=== PATIENT | male | born 1940 | race Caucasian/White ===

== ENCOUNTER → 2020-02-25 | Outpatient (CLI) | payer MEDICARE ==
[~2020-02-25] MED LIST: AC500T; FEXO60CA19; FLT05NA16; GLIPIZIDE XL; LSNP20T; MTF500T; MULT1TAB63; TESTOSTERONE
--- NOTE | 2020-02-25 16:46 | Diagnostic Imaging Report ---
INDICATION: 80-year-old male with vitamin D deficiency COMPARISON: None available. FINDINGS: AP Spine L1-L4: [BMD (g/cm2): NA] [T-Score: NA] [Z-Score: NA] [BMD Previous: NA] [BMD % Change: NA] LT Hip Neck: [BMD (g/cm2): 0.913] [T-Score: -1.2] [Z-Score: -0.2] LT Hip Total: [BMD (g/cm2):0.957] [T-Score:-1.0] [Z-Score: -0.4] [BMD Previous: NA] [BMD % Change: NA] RT Hip Neck: [BMD (g/cm2):0.946] [T-Score:-1.0] [Z-Score:0.0] RT Hip Total: [BMD (g/cm2):0.924] [T-score:-1.2] [Z-Score:-0.7] [BMD Previous:NA] [BMD % Change:NA] *Indicates significant change from prior examination based on 95% confidence level. World Health Organization criteria for BMD interpretation classify patients as Normal (T-score at or above -1.0), Osteopenic (T-score between -1.0 and -2.5) or Osteoporotic (T-score at or below -2.5). LIMITATIONS AND MODIFICATION: Posterior instrumented fusion lumbar spine prohibits utilization of this region to assess bone mineral density. FRACTURE RISK (FRAX SCORE): The ten year probability of (%): Major Osteoporotic Fracture: [5.9%] Hip Fracture: [1.7%] IMPRESSION: 1. Osteopenia (Low bone mass). 2. Baseline examination. 3. See below National Osteoporosis Foundation guidelines on when to potentially initiate pharmacologic therapy. Based on the National Osteoporosis Foundation Guidelines, pharmacologic treatment should be initiated in any of the following, unless clinical conditions suggest otherwise: * Any patient with prior fragility fracture of the hip or vertebrae. A spine fracture indicates 5X risk for subsequent spine fracture and 2X risk for subsequent hip fracture. * Osteoporosis (T-score <-2.5). * Postmenopausal women and men age 50 and older with low bone mass/osteopenia (T-score between -1.0 and -2.5) by DXA and 10-year major osteoporotic fracture greater than 20% or a 10-year probability of hip fracture greater than 3%. These fracture risks are supplied above in the FRAX score, if applicable. * Clinician judgement and/or patient preferences may indicate treatment for people with 10-year fracture probabilities above or below these levels. Dictated by: Dictated on workstation # [id number]
== END ==
LOC: RAD 13:30
PROVIDERS: ATTEND Nurse Practitioner Family
DX: Z00.00 Encounter for general adult medical examination without abnormal findings (principal); M85.851 Other specified disorders of bone density and structure, right thigh; M85.852 Other specified disorders of bone density and structure, left thigh
CPT/HCPCS: 77080

== ENCOUNTER → 2021-03-05 | Outpatient (CLI) | payer MEDICARE, OTHER | LOC: LAB FS 13:58 | PROVIDERS: ATTEND Internal Medicine Cardiovascular Disease | DX: Z85.46 Personal history of malignant neoplasm of prostate (principal) | CPT/HCPCS: 36415; 84153 ==

== ENCOUNTER 2021-06-02 05:29 | Outpatient (CLI) | payer MEDICARE, OTHER ==
[~2021-06-02] VITALS: Ht 177.8 cm; Wt 125.0 kg
[2021-06-07] MEDS ORDERED: ASPI-999 PO (08:40)
[2021-06-07] MEDS ORDERED: INSU100V6 SQ (08:40)
[2021-06-07] MEDS ORDERED: PANT40TA52 PO (08:40)
[2021-06-07] MEDS ORDERED: SITA1TBM4 PO (08:40)
[2021-06-07] MEDS ORDERED: TMSL.4C PO (08:40)
[2021-06-07] MEDS ORDERED: VITAMIN D3 (08:40)
[2021-06-07] MEDS ORDERED: LISI40TA9 PO (08:40)
[2021-06-07] MEDS ORDERED: OMG1KC PO (08:40)
[2021-06-07] MEDS ORDERED: FURO20TA4 PO (08:40)
[2021-06-07] MEDS ORDERED: OXB5TCR PO (08:40)
[2021-06-07] MEDS ORDERED: ROSU20TA32 PO (08:45)
[2021-06-07] MEDS ORDERED: METO50TA15 PO (08:45)
[2021-06-07] MEDS ORDERED: CYAN100015 SL (08:45)
[2021-06-07] MEDS ORDERED: ACHD5005 PO (08:45)
[2021-06-07] MEDS ORDERED: FEXO-46 PO (08:45)
[2021-06-07] MEDS ORDERED: LOTE5DRO8 OP (08:45)
[2021-06-07] MEDS ORDERED: FLUT9.9S NS (08:45)
[2021-06-07] MEDS ORDERED: FLUT1DIS26 IH (08:45)
[2021-06-07] MEDS ORDERED: NITR0.4T42 SL (08:45)
== END 2021-06-07 08:57 | disposition home or self-care (01) ==
LOC: PREOP 05:29
PROVIDERS: ATTEND Orthopaedic Surgery
DX: Z01.818 Encounter for other preprocedural examination (principal)

== ENCOUNTER 2021-06-09 07:15 | Day surgery (SDC) | payer MEDICARE, OTHER ==
--- NOTE | 2021-06-01 17:05 | HISTORY AND PHYSICAL ---
DATE OF SERVICE: ADMISSION HISTORY AND PHYSICAL This will be for outpatient surgery on 06/09/2021 for right carpal tunnel release. HISTORY OF PRESENT ILLNESS: The patient is a 81-year-old gentleman with complaints of right hand pain. He underwent an EMG nerve conduction study, which revealed evidence of carpal tunnel syndrome. He reports periodic pain and paresthesias in his right hand, which is worse with repetitive activities. He denies any night pain for the most part, but does have occasionally. Due to functional impairment and failure to improve with conservative measures, the patient elected to proceed with surgical intervention. REVIEW OF SYSTEMS: No chest pain, no shortness of breath, no dysuria. PAST MEDICAL HISTORY: Diabetes, hypertension, congestive heart failure, COPD and reflux. PAST SURGICAL HISTORY: Coronary stent placement, lumbar fusion. FAMILY HISTORY: Noncontributory. [facility] ALLERGIES: NO KNOWN DRUG ALLERGIES. SOCIAL HISTORY: The patient is a former smoker, he drinks alcohol socially. MEDICATIONS: Ditropan, multivitamin, pantoprazole, aspirin, furosemide, vitamin B12, Brilinta, vitamin D, tamsulosin, metoprolol, atorvastatin, lisinopril, Janumet, insulin. PHYSICAL EXAMINATION: GENERAL: The patient is well-developed, well-nourished, in no acute distress. HEENT: Normocephalic, atraumatic. Pupils are equal, round and reactive to light. Oropharynx is clear. NECK: Supple, no lymphadenopathy. LUNGS: Clear to auscultation bilaterally. HEART: Regular rate and rhythm. ABDOMEN: Soft, nontender, nondistended. EXTREMITIES: The patient has a positive Tinel's at the right wrist, positive Phalen's maneuver. He has decreased sensation in median distribution. No gross atrophy is noted. Does have some slight weakness with thumb palmar abduction. He has negative elbow flexion test and negative Tinel's at the cubital tunnel. IMPRESSION: Right carpal tunnel syndrome. PLAN: Right carpal tunnel release. The risks, benefits, options, ramifications and recovery were discussed at length with the patient. He understands and wishes to proceed. Job ID: [id number] DocumentID: [id number] Dictated Date: 05/31/2021 09:03:46 Campaign Coordinator Date: 05/31/2021 10:21:12 Dictated By: KATY HUBBARD MD
[~2021-06-09] VITALS: Ht 177 cm; Wt 125.0 kg
[~2021-06-09 07:15] MED LIST changes: +ACHD5005 PO; +ASPI-999 PO; +CYAN100015 SL; +FEXO-46 PO; +FLUT1DIS26 IH; +FLUT9.9S NS; +FURO20TA4 PO; +INSU100V6 SQ; +LISI40TA9 PO; +LOTE5DRO8 OP; +METO50TA15 PO; +NITR0.4T42 SL; +OMG1KC PO; +OXB5TCR PO; +PANT40TA52 PO; +ROSU20TA32 PO; +SITA1TBM4 PO; +TMSL.4C PO; +VITAMIN D3
[2021-06-09] MEDS ORDERED: ceFAZolin INJECTION 1,000 MG VIAL IV ONE (07:30)
[2021-06-09] MEDS ORDERED: LACTATED RINGERS 1,000 ML IV PRN (07:30)
[2021-06-09 07:45] VITALS: BP 187/82
[2021-06-09] MEDS ORDERED: HYDROcodone/APAP 7.5 MG/325 MG (LORTAB, LORCET PLUS) TABLET PO PRN (07:45)
[2021-06-09] MEDS ORDERED: LIDOCAINE 1% INJ 20 ML VIAL ONE (07:49)
[2021-06-09] MEDS ORDERED: BUPIVACAINE 0.5% 30 ML (SENSORCAINE) VIAL ONE (07:49)
[2021-06-09] MEDS ORDERED: PROPOFOL INJECTION 50 ML IV ONE (08:37)
--- NOTE | 2021-06-09 09:29 | Progress Note-Pre Operative ---
Pre-Operative Progress Note H&P Reviewed The H&P was reviewed, patient examined and no changes noted. Date Seen by Provider: Jun 09, 2021 Time Seen by Provider: 09:15 Date H&P Reviewed: Jun 09, 2021 Time H&P Reviewed: 07:11 Pre-Operative Diagnosis: right carpal tunnel syndrome KATY HUBBARD MD Jun 09, 2021 09:29
--- NOTE | 2021-06-09 09:30 | Progress Note-Post Operative ---
Post-Operative Progess Note Surgeon (s)/Sign Poster (s) Surgeon KATY HUBBARD MD Sign Poster: Sb Abraham Pre-Operative Diagnosis right carpal tunnel syndrome Post-Operative Diagnosis right carpal tunnel syndrome Procedure & Operative Findings Date of Procedure 06/09/21 Procedure Performed/Findings right open carpal tunnel release Anesthesia Type MAC plus local Estimated Blood Loss Estimated blood loss (mL): minimal Specimens/Packing Specimens Removed none Packing: none KATY HUBBARD MD Jun 09, 2021 09:30
[2021-06-09 09:59] VITALS: BP 144/71
--- NOTE | 2021-06-09 10:04 | Anesthesia-General Post-Op ---
MAC Patient Condition Mental Status/LOC: Same as Preop Cardiovascular: Satisfactory Nausea/Vomiting: Absent Respiratory: Satisfactory Pain: Controlled Complications: Absent Post Op Complications Complications None Follow Up Care/Instructions Patient Instructions None needed. Anesthesiology Discharge Order Discharge Order Patient is doing well, no complaints, stable vital signs, no apparent adverse anesthesia problems. No complications reported per nursing. RITCHIE DUNCAN CRNA Jun 09, 2021 10:04
[2021-06-09 10:09] VITALS: BP 163/78
[2021-06-09] MEDS ORDERED: morphine INJ 10 MG/ML 1ML (SYR OR VIAL) IVP ONE (10:15)
[2021-06-09] MEDS ORDERED: ONDANSETRON 4 MG/2 ML (SDV) Z0FRAN IVP PRN (10:15)
[2021-06-09 10:19] VITALS: BP 143/73
[2021-06-09 10:30] VITALS: BP 160/79
[2021-06-09 11:00] VITALS: BP 177/89
--- NOTE | 2021-06-09 12:22 | OPERATIVE REPORT ---
DATE OF SERVICE: 06/09/2021 PREOPERATIVE DIAGNOSIS: Right carpal tunnel syndrome. POSTOPERATIVE DIAGNOSIS: Right carpal tunnel syndrome. PROCEDURE: Right open carpal tunnel release. SURGEON: Sid Mclean MD REVOLVING FIELD ASSEMBLER: Sb Abraham, who assisted throughout the procedure and closed the incision. ANESTHESIA: Monitored anesthesia care plus local by Orlando Escoto CRNA. TOURNIQUET TIME: 3 minutes at 250 mmHg. ESTIMATED BLOOD LOSS: Minimal. DRAINS: None. COMPLICATIONS: None. POSTOPERATIVE PLAN: Routine protocol. The patient was transferred to the recovery room awake and in stable condition. STATEMENT OF MEDICAL NECESSITY: The patient is a 81-year-old right hand dominant gentleman with complaints of right hand pain and paresthesias. He had positive Tinel's of carpal tunnel, positive Phalen's maneuver. He had undergone treatment with anti-inflammatories, rest and activity modifications. Due to functional impairment and failure to improve with conservative measures, the patient elected to proceed with surgical intervention. DESCRIPTION OF PROCEDURE: After risks and benefits of procedure were discussed and questions were answered, informed consent was signed and placed on chart, the operative site was confirmed in the preoperative holding area initialed by the surgeon. The patient was then transferred to the operating room and after adequate levels of monitored anesthesia care were obtained, a timeout was called, confirming the operative site and under sterile conditions, the incision site on the right hand was infiltrated with a combination of plain lidocaine and plain Marcaine. The right upper extremity was then prepped and draped in the usual sterile fashion with arm elevated, the tourniquet was inflated to 250 mmHg. A longitudinal incision was made in line over the transverse carpal ligament, in line with radial border of the ring finger. The underlying soft tissues were carefully dissected. Transverse carpal ligament was spread above and below with dissection scissors, was released distally under direct visualization with the scalpel blade while carefully protecting the median nerve and then was spread above and below with dissection scissors proximally and the proximal aspect was released with the slightly open scissor edges. This was confirmed fully released with a freer. The median nerve was carefully protected throughout the procedure and intact at the conclusion of the procedure. Tourniquet was deflated for a total time of 3 minutes. Pressure was used for hemostasis. Wound was copiously irrigated and closed with 4-0 nylon in a running alternating horizontal mattress fashion. A soft dressing and brace were applied. The patient was transferred to the recovery room awake and in stable condition. Job ID: [id number] DocumentID: [id number] Dictated Date: 06/09/2021 09:55:14 District Fire Chief Date: 06/09/2021 12:21:33 Dictated By: SID MCLEAN MD
== END 2021-06-09 11:10 | disposition home or self-care (01) ==
LOC: SDC 07:15
PROVIDERS: ATTEND Orthopaedic Surgery
DX: G56.01 Carpal tunnel syndrome, right upper limb (principal); E11.9 Type 2 diabetes mellitus without complications; I11.0 Hypertensive heart disease with heart failure; I50.9 Heart failure, unspecified; J44.9 Chronic obstructive pulmonary disease, unspecified; K21.9 Gastro-esophageal reflux disease without esophagitis; E66.9 Obesity, unspecified; Z87.891 Personal history of nicotine dependence; Z79.4 Long term (current) use of insulin; Z79.899 Other long term (current) drug therapy; Z79.82 Long term (current) use of aspirin; Z79.84 Long term (current) use of oral hypoglycemic drugs; Z79.52 Long term (current) use of systemic steroids; Z68.39 Body mass index [BMI] 39.0-39.9, adult; Z95.5 Presence of coronary angioplasty implant and graft
CPT/HCPCS: 82947; 87081

== ENCOUNTER → 2021-10-28 | Outpatient (CLI) | payer MEDICARE, OTHER ==
[~2021-10-28] MED LIST changes: -FEXO-46 PO; +NF-ALLE180 PO
--- NOTE | 2021-10-28 12:57 | Diagnostic Imaging Report ---
EXAMINATION: CT chest without contrast. TECHNIQUE: Multiple contiguous axial images were obtained through the chest without the use of intravenous contrast. All CT scans use one or more of the following dose optimizing techniques: automated exposure control, MA and/or KvP adjustment based on patient size and exam type or iterative reconstruction. HISTORY: HX OF TOBACCO USE COMPARISON: None available. FINDINGS: Thyroid: The thyroid is normal. Mediastinum: Heart size is normal without significant pericardial effusion. Calcifications of the aorta and coronary vessels. Thoracic aorta is normal in caliber. No suspicious lymphadenopathy. Lungs and airways: The lungs are clear without consolidation, pleural effusion, or pneumothorax. There is no suspicious pulmonary lesion. The airways are normal. Upper abdomen: Hepatic cysts are present. The subphrenic structures are unremarkable. Musculoskeletal: Degenerative changes of the spine without suspicious osseous lesion or compression fracture. IMPRESSION: 1. No acute abnormality in the chest. Dictated by: Dictated on workstation # [id number]
== END ==
LOC: RAD FS 12:11
PROVIDERS: ATTEND Nurse Practitioner Family
DX: Z87.891 Personal history of nicotine dependence (principal)
CPT/HCPCS: 71250

== ENCOUNTER 2022-03-07 05:38 | Outpatient (CLI) | payer MEDICARE, OTHER ==
[~2022-03-07] VITALS: Ht 177.8 cm; Wt 131.8 kg
[~2022-03-07 05:38] MED LIST changes: -AC500T; +AC500T PO
[2022-03-08] MEDS ORDERED: GABA300C PO (14:08)
[2022-03-08] MEDS ORDERED: FLUT1BLS15 IH (14:08)
[2022-03-08] MEDS ORDERED: ATOR10TA66 PO (14:08)
[2022-03-08] MEDS ORDERED: HYDR-3817 PO (14:08)
== END 2022-03-08 14:24 | disposition home or self-care (01) ==
LOC: PREOP 05:38
PROVIDERS: ATTEND Specialist
DX: Z01.818 Encounter for other preprocedural examination (principal)

== ENCOUNTER 2022-03-11 07:55 | Day surgery (SDC) | payer MEDICARE, OTHER ==
[~2022-03-11] VITALS: Ht 177.8 cm; Wt 131.0 kg
[~2022-03-11 07:55] MED LIST changes: +ATOR10TA66 PO; +FLUT1BLS15 IH; +GABA300C PO; +HYDR-3817 PO
[2022-03-11 08:14] VITALS: BP 136/75
[2022-03-11] MEDS ORDERED: PHENYLEPHRINE 10% OPHTH (NEO-SYN) 5 ML BTL OU PRN (08:15)
[2022-03-11] MEDS ORDERED: TETRACAINE 0.5% OPHTH SOLN 4 ML BTL (SINGLE DOSE ONLY) OU PRN (08:15)
[2022-03-11] MEDS ORDERED: TROPICAMIDE 1% OPH SOLN (MYDRIACYL) 15 ML BTL OU PRN (08:15)
--- NOTE | 2022-03-11 09:30 | Ophthalmologist Pre-Op Note ---
Pre-Operative Progress Note H&P Reviewed The H&P was reviewed, patient examined and no changes noted. Date H&P Reviewed: Mar 11, 2022 Time H&P Reviewed: 09:00 Pre-Op Dx Secondary Cataract, Bilateral Eyes ALLISON MOYER MD Mar 11, 2022 09:30
--- NOTE | 2022-03-11 09:30 | Ophthalmology Operative Report ---
YAG Capsulotomy PREOPERATIVE DIAGNOSIS: Secondary Cataract Bilateral POSTOPERATIVE DIAGNOSIS: Secondary Cataract Bilateral PROCEDURE: YAG Capsulotomy, Bilateral SURGEON: Maurizio Moyer ANESTHESIA: Topical anesthesia COMPLICATIONS: None ESTIMATED BLOOD LOSS: Minimal DESCRIPTION OF PROCEDURE: After proper informed consent was obtained, the patient's, a 82 male , received one drop of Tropicamide and one drop of Tetracaine in each eye. The patient was then placed at the YAG laser and using a power of [4.5 ] millijoules and bursts [ 17] right eye and [ 24] left eye were used to fashion a central capsulotomy. The patient tolerated the procedure well without complications. MAURIZIO MOYER MD Mar 11, 2022 09:30
== END 2022-03-11 09:21 | disposition home or self-care (01) ==
LOC: SDC 07:55 → EDSTATUS 11:00
PROVIDERS: ATTEND Specialist
DX: E11.36 Type 2 diabetes mellitus with diabetic cataract (principal); H26.40 Unspecified secondary cataract; Z87.891 Personal history of nicotine dependence

== ENCOUNTER 2022-11-10 14:50 | Observation (INO) | payer OTHER, MEDICARE ==
[~2022-11-10] VITALS: Ht 177 cm; Wt 130.8 kg
[~2022-11-10 14:50] MED LIST changes: -FLUT9.9S NS; +FLUT9.9S NSEACH; +LOTE5DRO14 OU; -LOTE5DRO8 OP; -ROSU20TA32 PO; +ROSU20TA73 PO
[2022-11-10 15:24] LABS: BASOPHILS % (AUTO) 0 % (0-10); EOSINOPHILS # (AUTO) 0.3 10^3/uL (0.0-0.3); EOSINOPHILS % (AUTO) 4 % (0-10); HEMATOCRIT 35 % (40-54); HEMOGLOBIN 11.6 g/dL (13.3-17.7); LYMPHOCYTES # (AUTO) 1.6 X 10^3 (1.0-4.0); LYMPHOCYTES % (AUTO) 22 % (12-44); MEAN CORPUSCULAR HEMOGLOBIN 30 pg (25-34); MEAN CORPUSCULAR HGB CONC 33 g/dL (32-36); MEAN CORPUSCULAR VOLUME 92 fL (80-99); MEAN PLATELET VOLUME 11.2 fL (9.0-12.2); MONOCYTES # (AUTO) 0.6 X 10^3 (0.0-1.0); MONOCYTES % (AUTO) 8 % (0-12); NEUTROPHILS # (AUTO) 4.5 X 10^3 (1.8-7.8); NEUTROPHILS % (AUTO) 65 % (42-75); PLATELET COUNT 206 10^3/uL (130-400)
[2022-11-10 15:25] LABS: ALBUMIN 4.1 GM/DL (3.2-4.5); CHLORIDE 107 MMOL/L (98-107); POTASSIUM 5.1 MMOL/L (3.6-5.0); SODIUM 138 MMOL/L (135-145)
[2022-11-10 15:26] LABS: PROTHROMBIN TIME PATIENT 13.8 SEC (12.2-14.7)
[2022-11-10 15:27] LABS: CALCIUM 9.2 MG/DL (8.5-10.1)
[2022-11-10 15:28] LABS: GLUCOSE 298 MG/DL (70-105); TOTAL PROTEIN 6.7 GM/DL (6.4-8.2)
[2022-11-10 15:29] LABS: CARBON DIOXIDE 20 MMOL/L (21-32)
[2022-11-10 15:30] LABS: BILIRUBIN,TOTAL 0.3 MG/DL (0.1-1.0)
[2022-11-10 15:31] LABS: ALKALINE PHOSPHATASE 72 U/L (40-136)
[2022-11-10 15:32] LABS: CREATININE SERUM 2.08 MG/DL (0.60-1.30); GFR ESTIMATED 32
[2022-11-10 15:33] LABS: BUN/CREATININE RATIO 21
[2022-11-10 15:34] LABS: ALANINE AMINOTRANSFERASE 25 U/L (0-55); MAGNESIUM 1.8 MG/DL (1.6-2.4)
--- NOTE | 2022-11-10 15:36 | Diagnostic Imaging Report ---
INDICATION: Chest pain. TECHNIQUE: Frontal chest obtained at 03:31 p.m. FINDINGS: Heart is borderline in size. There is no focal infiltrate or pneumothorax or pleural fluid. IMPRESSION: Negative chest. Dictated by: Dictated on workstation # [id number]
--- NOTE | 2022-11-10 17:08 | ED Cardiac General ---
History of Present Illness General Chief Complaint: Cardiac/General Problems Stated Complaint: DECREASED HEART RATE Nursing Triage Note: PT PRESENTS TO ER WITH REPORTED BILATERAL ARM HEAVINESS AND BRADYCARDIA, REPORTS THAT HEART RATE WAS IN THE 40'S AT HOME. PT DENIES COMPLAINTS OF CHEST PAIN/SHORTNESS OF BREATH Source: patient Exam Limitations: no limitations History of Present Illness Date Seen by Provider: Nov 10, 2022 Time Seen by Provider: 15:10 Initial Comments Here with report of low heart rate and feeling heavy in his arms and legs and face. States that his heart rate was down into the 40s at home. Does have history of heart failure, hypertension and diabetes. Notes swelling in his legs that seem to be a little worse than previous. 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 He is from [place] and came down here after calling his health nurse and describing symptoms. He arrives with mild shortness of breath. Denies chest pain but does admit to leg swelling. States he has diabetes and his blood sugars have been running in the 200s recently. Denies fever, chills, upper respiratory symptoms or diarrhea. He is urinating okay. Timing/Duration: 1-3 hours Severity: moderate Location: other (Global weakness/heaviness) NTG SL INSTRUCTOR HAIRSPRING: No ASA po INSTRUCTOR HAIRSPRING: No Associated Systoms: No Chest Pain, No Cough, No Fever/Chills, No Nausea/Vomiting, No Shortness of Air; Weakness Allergies and Home Medications Allergies Coded Allergies: No Known Drug Allergies (Verified , 06/07/21) Patient Home Medication List Home Medication List Reviewed: Yes Acetaminophen (Tylenol) 500 Mg Tablet, 1,000 MG PO UD, (Reported) Entered as Reported by: CRIS ANTHONY on 02/15/07 2347 Aspirin (Aspirin) 81 Mg Tab.chew, 81 MG PO DAILY, (Reported) Entered as Reported by: KENIA TREVINO on 06/07/21 0840 Atorvastatin Calcium (Atorvastatin Calcium) 10 Mg Tablet, 10 MG PO HS, (Reported) Entered as Reported by: KENIA TREVINO on 03/08/22 1408 Cyanocobalamin (Vitamin B-12) (Vitamin B-12) 1,000 Mcg Tab.subl, 1,000 MCG SL UD, (Reported) Entered as Reported by: KENIA TREVINO on 06/07/21 0845 Fexofenadine HCl (Fexofenadine HCl) Unknown Strength Tablet, Unknown Dose PO, (Reported) Entered as Reported by: KENIA TREVINO on 06/07/21844 Fluticasone Propionate (Flonase) 16 Gm [place], (Reported) Entered as Reported by: CRIS ANTHONY on 02/15/072345 Fluticasone Propionate (Flonase Allergy Relief) 9.9 Ml [place].susp, 1 SPRAY NS DAILY, (Reported) Entered as Reported by: KENIA TREVINO on 06/07/21844 Fluticasone/Salmeterol (Advair 250-50 Diskus) Unknown Strength Blst.w.dev, Unknown Dose IH DAILY, (Reported) Entered as Reported by: KENIA TREVINO on 06/07/21844 Fluticasone/Umeclidin/Vilanter (Trelegy Ellipta 200-62.5-25) 200-62.5 Blst.w.dev, 1 EACH IH DAILY, (Reported) Entered as Reported by: KENIA TREVINO on 03/08/221407 Furosemide (Furosemide) 20 Mg Tablet, 20 MG PO PRN, (Reported) Entered as Reported by: KENIA TREVINO on 06/07/21839 Gabapentin (Neurontin) 300 Mg Capsule, 600 MG PO HS, (Reported) Entered as Reported by: KENIA TREVINO on 03/08/221407 Hydrocodone/Acetaminophen (Hydrocodone-Acetamin 7.5-325) 7.5 Mg-325 Mg Tablet, 1 EACH PO UD, (Reported) Entered as Reported by: KENIA TREVINO on 03/08/221407 Insulin Glargine,Hum.rec.anlog (Lantus) 100 Unit/1 Ml Vial, 40 UNIT SQ HS, (Reported) Entered as Reported by: KENIA TREVINO on 06/07/21839 Lisinopril (Lisinopril) 40 Mg Tablet, 40 MG PO DAILY, (Reported) Entered as Reported by: KENIA TREVINO on 06/07/21839 Loteprednol Etabonate (Loteprednol Etabonate) 5 Ml Drops.susp, 1 DROP OP UD, (Reported) Entered as Reported by: KENIA TREVINO on 06/07/21844 Metoprolol Tartrate (Metoprolol Tartrate) 50 Mg Tablet, 100 MG PO BID, (Reported) Entered as Reported by: KENIA TREVINO on 06/07/21844 Multivitamins (Vitamins (Multi-Vit)) 1 Ea Tablet, (Reported) Entered as Reported by: CRIS ANTHONY on 02/15/07 2343 Nitroglycerin (Nitroglycerin) 0.4 Mg Tab.subl, 0.4 MG SL UD, (Reported) Entered as Reported by: KENIA TREVINO on 06/07/21844 [place] 3 Polyunsat Fatty Acids (Fish Oil 1,000 mg Capsule) 1,000 Mg Cap, 1,000 MG PO DAILY, (Reported) Entered as Reported by: KENIA TREVINO on 06/07/21839 Pantoprazole Sodium (Pantoprazole Sodium) 40 Mg Tablet.dr, 40 MG PO DAILY, (Reported) Entered as Reported by: KENIA TREVINO on 06/07/21839 Sitagliptin Phos/Metformin HCl (Janumet Xr 50-1,000 mg Tablet) 1 Each Tbmp.24hr, 1 EACH PO DAILY, (Reported) Entered as Reported by: KENIA TREVINO on 06/07/21839 Tamsulosin HCl (Flomax) 0.4 Mg Cap, 0.4 MG PO DAILY, (Reported) Entered as Reported by: KENIA TREVINO on 06/07/21839 [Vitamin D3] , UD, (Reported) Entered as Reported by: KENIA TREVINO on 06/07/21839 Review of Systems Review of Systems Constitutional: see HPI; No chills, No fever EENTM: No Symptoms Reported Respiratory: Denies Cough, Denies Shortness of Air Cardiovascular: Edema, Irregular Heart Rate Gastrointestinal: Denies Nausea, Denies Vomiting Genitourinary: No Symptoms Reported Musculoskeletal: No back pain; muscle weakness Skin: no symptoms reported Psychiatric/Neurological: Headache, Weakness Past Mwoefgz-Zhxyzi-Fxninv Hx Patient Social History Tobacco Use?: No Smoking Status: Former Smoker Use of E-Cig and/or Vaping dev: No Substance use?: No Alcohol Use?: Yes Pt feels they are or have been: No Immunizations Up To Date Influenza Vaccine Up-to-Date: Yes; Up-to-Date First/Initial COVID19 Vaccinat: 06/04/20 Second COVID19 Vaccination Slim: 07/02/20 Third COVID19 Vaccination Date: 04/06/21 Seasonal Allergies Seasonal Allergies: Yes Past Medical History Surgery/Hospitalization HX: CARDIAC STENTS, CHF, COPD WITH C-PAP, DM, ARTHRITIS Surgeries: Yes (vasectomy) Respiratory: Yes Pneumonia, COPD Cardiac: Yes (CHF) Heart Attack, High Cholesterol, Hypertension Neurological: No Reproductive Disorders: Yes Genitourinary: Yes (URGES) Prostate Problems Gastrointestinal: Yes Gastroesophageal Reflux Musculoskeletal: Yes Degenerate Disk Disease, Arthritis Endocrine: Yes Diabetes, Insulin dep HEENT: No Cancer: Yes Prostate What Type of Treatment Did You: Radiation Psychosocial: No Blood Disorders: No Family Medical History Reviewed Nursing Family Hx Physical Exam Vital Signs Vital Signs - First Documented 11/10/22 14:55 Temp 37.0 Pulse 57 Resp 20 B/P (MAP) 118/57 (77) Pulse Ox 97 O2 Delivery Room Air Capillary Refill : Less Than 3 Seconds Height, Weight, BMI Height: '" Weight: lbs. oz. kg; 42.00 BMI Method: General Appearance: No Apparent Distress, WD/WN, Obese HEENT: PERRL/EOMI, Pharynx Normal Neck: Non Tender, Supple Respiratory: Lungs Clear, Normal Breath Sounds Cardiovascular: No Murmur, Bradycardia Gastrointestinal: Non Tender, Soft Extremity: Normal Range of Motion, Non Tender, Pedal Edema (2+) Neurologic/Psychiatric: Alert, Oriented x3 Skin: Normal Color, Warm/Dry Progress/Results/Core Measures Results/Orders Lab Results Laboratory Tests Test 11/10/22 14:59 Range/Units White Blood Count 7.0 4.3-11.0 10^3/uL Red Blood Count 3.85 L 4.30-5.52 10^6/uL Hemoglobin 11.6 L 13.3-17.7 g/dL Hematocrit 35 L 40-54 % Mean Corpuscular Volume 92 80-99 fL Mean Corpuscular Hemoglobin 30 25-34 pg Mean Corpuscular Hemoglobin Concent 33 32-36 g/dL Red Cell Distribution Width 13.7 10.0-14.5 % Platelet Count 206 130-400 10^3/uL Mean Platelet Volume 11.2 9.0-12.2 fL Immature Granulocyte % (Auto) 1 % Neutrophils (%) (Auto) 65 42-75 % Lymphocytes (%) (Auto) 22 12-44 % Monocytes (%) (Auto) 8 0-12 % Eosinophils (%) (Auto) 4 0-10 % Basophils (%) (Auto) 0 0-10 % Neutrophils # (Auto) 4.5 1.8-7.8 X 10^3 Lymphocytes # (Auto) 1.6 1.0-4.0 X 10^3 Monocytes # (Auto) 0.6 0.0-1.0 X 10^3 Eosinophils # (Auto) 0.3 0.0-0.3 10^3/uL Basophils # (Auto) 0.0 0.0-0.1 10^3/uL Immature Granulocyte # (Auto) 0.0 0.0-0.1 10^3/uL Prothrombin Time 13.8 12.2-14.7 SEC INR Comment 1.0 0.8-1.4 Activated Partial Thromboplast Time 29 24-35 SEC Sodium Level 138 135-145 MMOL/L Potassium Level 5.1 H 3.6-5.0 MMOL/L Chloride Level 107 98-107 MMOL/L Carbon Dioxide Level 20 L 21-32 MMOL/L Anion Gap 11 5-14 MMOL/L Blood Urea Nitrogen 44 H 7-18 MG/DL Creatinine 2.08 H 0.60-1.30 MG/DL Estimat Glomerular Filtration Rate 32 BUN/Creatinine Ratio 21 Glucose Level 298 H 70-105 MG/DL Calcium Level 9.2 8.5-10.1 MG/DL Corrected Calcium 9.1 8.5-10.1 MG/DL Magnesium Level 1.8 1.6-2.4 MG/DL Total Bilirubin 0.3 0.1-1.0 MG/DL Aspartate Amino Transf (AST/SGOT) 16 5-34 U/L Alanine Aminotransferase (ALT/SGPT) 25 0-55 U/L Alkaline Phosphatase 72 40-136 U/L Myoglobin 112.7 H 10.0-92.0 NG/ML Troponin I < 0.028 <0.028 NG/ML B-Type Natriuretic Peptide 139.5 H <100.0 PG/ML Total Protein 6.7 6.4-8.2 GM/DL Albumin 4.1 3.2-4.5 GM/DL My Orders Orders - DANITA PATINO MD Ekg Tracing (11/10/22 15:05) Cbc With Automated Diff (11/10/22 15:13) Magnesium (11/10/22 15:13) Chest 1 View, Ap/Pa Only (11/10/22 15:13) Ekg Tracing (11/10/22 15:13) Comprehensive Metabolic Panel (11/10/22 15:13) Myoglobin Serum (11/10/22 15:13) Protime With Inr (11/10/22 15:13) Partial Thromboplastin Time (11/10/22 15:13) O2 (11/10/22 15:13) Monitor-Rhythm Ecg Trace Only (11/10/22 15:13) Lipid Panel (11/11/22 06:00) Ed Iv/Invasive Line Start (11/10/22 15:13) Bnp [place] (11/10/22 15:13) Troponin I [place] (11/10/22 15:13) Code/Resuscitation (11/10/22 18:03) Ed Admission (Communication) (11/10/22 18:03) Troponin I [place] (11/10/22 18:26) Vital Signs/I&O 11/10/22 14:55 Temp 37.0 Pulse 57 Resp 20 B/P (MAP) 118/57 (77) Pulse Ox 97 O2 Delivery Room Air Blood Pressure Mean: 77 Progress Progress Note : Progress Note Seen and evaluated. IV, labs including CBC, CMP, troponin, BNP ordered. X-ray ordered. Patient on monitor. Patient is on Eliquis and denying chest pain so we will hold on aspirin. Monitor patient. Differential diagnosis includes cardiac event, arrhythmia, heart failure 1700: Chest x-ray shows mild cardiomegaly but no pulmonary edema or infiltrate on my interpretation. 1750: Labs reviewed and patient has essentially normal CBC with slightly low hemoglobin. Chemistry does show elevated potassium and chronic renal failure as well as elevated glucose with normal LFTs. Troponin is negative but myoglobin is slightly elevated and BNP is slightly elevated. I have spoken with Dr. Christianson, manager school on-call, and reviewed case. He is recommending repeat troponin at 3-hour berna and in the morning. He is recommending cardiac echo in the morning and holding metoprolol and he will see the patient in consult. I spoke with Dr. Roberts, resident on-call for Dr. Mathur for hospitalist service for [facility] and she accepts patient for admission, observation status and she will write orders. I did discuss CODE STATUS with the patient and he is full code. Overall he is doing well and heart rate has remained in the low to mid 50s with blood pressure 110s to 120s systolic. Patient agrees with admission. Initial ECG Impression Date: Nov 10, 2022 Initial ECG Impression Time: 15:13 Initial ECG Rate: 51 Initial ECG Rhythm: S.Ulises Comment Sinus bradycardia with normal axis and right bundle branch block and low volume P waves. No evidence of ST elevation ND. Interpreted by me. Diagnostic Imaging Diagonstic Imaging: Xray Plain Films/CT/US/NM/MRI: chest Comments [facility] [place] NAME: JABARI LAUREANO [facility] REC#: [id number] PT STATUS: REG ER : 1940 PHYSICIAN: DANITA PATINO MD ADMIT DATE: 11/10/22/ER Signed Date of Exam:11/10/22 CHEST 1 VIEW, AP/PA ONLY INDICATION: Chest pain. TECHNIQUE: Frontal chest obtained at 03:31 p.m. FINDINGS: Heart is borderline in size. There is no focal infiltrate or pneumothorax or pleural fluid. IMPRESSION: Negative chest. Dictated by: Dictated on workstation # [id number] Dict: 11/10/22 1533 Trans: 11/10/22 1650 [id number] Interpreted by: BHAVESH ALEXANDER MD Electronically signed by: BHAVESH ALEXANDER MD 11/10/22 1650 Departure Communication (Admissions) Time/Spoke to Admitting Phy: 17:50 Time/Spoke to Consulting Phy: 17:35 Impression Primary Impression: Symptomatic bradycardia Disposition: ADMITTED INPATIENT Condition: Stable Admissions Decision to Admit Reason: Admit from ER (General) Decision to Admit/Date: Nov 10, 2022 Time/Decision to Admit Time: 17:35 Departure-Patient Inst. Referrals: NO,LOCAL PHYSICIAN (PCP) Primary Care Physician MARGARET RODRIGUEZ APRN (Family) Primary Care Physician DANITA PATINO MD Nov 10, 2022 17:08
--- NOTE | 2022-11-10 18:58 | History & Physical ---
ANT BACK MD 11/10/22 1248: HPI History of Present Illness: Mr. Greenfield is an 82yo male with a medical history significant for MA (about 2yrs ago; s/p stent placements), DVT (6wks ago) on Eliquis, CHF, COPD, T2DM, HTN, HLD, here for symptomatic bradycardia. Earlier today while he was [place] at a market, he felt progressive heaviness in his arms and legs associated with a right temporal headache, and onset of blurry vision. He denied experiencing chest pain, SOB, N/V, or lightheadedness. He called the health nurse line, who advised him to take an ambulance to the ED. There were no ambulances available, so his step-son drove him to [place] via [employer]. Upon arrival to the ED, his EKG showed sinus bradycardia with RBBB; CXR was unremarkable except for borderline cardiac sillhouette; initial troponin WNL, myoglobin 112, BNP 139, WBC WNL, CMP demonstrated elevated K 5.1, Cr 2.08. Pt was admitted for further cardiac work-up. Source: patient Exam Limitations: no limitations Date seen by provider: Nov 10, 2022 Time Seen by Provider: 18:30 Attending Physician No,Local Physician PCP Admitting Physician: Dr. Mathur Attending Physician: Dr. Mathur Consult Cardiology Date of Admission Home Medications Home Medications Reviewed patient Home Medication Reconciliation performed by pharmacy medication reconciliations entry level lab technician and/or nursing. Patients Allergies have been reviewed. Allergies Coded Allergies: No Known Drug Allergies (Verified , 06/07/21) QBP-Pilopm-Qjkhyv Hx Patient Social History Smoking Status: Former Smoker Recent Hopitalizations: Yes Alcohol Use?: Yes Immunizations Up To Date Influenza Vaccine Up-to-Date: Yes; Up-to-Date First/Initial COVID19 Vaccinat: 06/04/20 Second COVID19 Vaccination Slim: 07/02/20 Third COVID19 Vaccination Date: 04/06/21 Review of Systems (CHC) Constitutional: see HPI Respiratory: no symptoms reported Cardiovascular: see HPI, edema, Hx of Intervention Musculoskeletal: muscle cramps Psychiatric/Neurological: Headache All Other Systems Reviewed Negative Unless Noted: Yes Physical Exam-(CHC) Physical Exam Vital Signs VS - Last 72 Hours, by Label 11/10/22 11/10/22 14:55 19:32 Temp 37.0 Pulse 57 55 Resp 20 20 B/P (MAP) 118/57 (77) 157/84 Pulse Ox 97 95 O2 Delivery Room Air Room Air Capillary Refill : Less Than 3 Seconds General Appearance: no apparent distress Eyes: Bilateral Eye PERRL, Bilateral Eye EOMI Neck: normal inspection Respiratory: wheezing (expiratory wheezing, prominent on R side) Cardiovascular: bradycardia, gallop/S4 Peripheral Pulses: 2+ Dorsalis Pedis (R), 2+ Left Dors-Pedis (L) Gastrointestinal: non tender, soft Extremities: normal range of motion, calf tenderness, pedal edema, slow capillary refill, swelling Neurologic/Psychiatric: no motor/sensory deficits, alert, normal mood/affect, oriented x 3 Skin: normal color Assessment/Plan Assessment/Plan Admission Dx Symptomatic bradycardia Admission Status: Observation Reason for Inpatient Admission: Symptomatic bradycardia Assessment & Plan Symptomatic bradycardia - Admit to observation status in cardiac step-down unit for further cardiac work-up - Cardiology consult in AM - Trend troponin (delta) - Repeat troponin in AM - Echo in AM - Monitor on telemetry - Cardiac diet - Hold metoprolol in setting of bradycardia - Holding home antihypertensives - Continue home Eliquis 5 mg BID T2DM - LDCF - ACHS Clinical Quality Measures AMI/AHF: ASA po Prior to arrival: No RENE MATHUR MD 11/11/22 1017: Home Medications Allergies Coded Allergies: No Known Drug Allergies (Verified , 06/07/21) Supervisory-Addendum Brief Supervisory Addendum I saw this patient at about 0950 on 11/11 and did my own history and exam. I agree with the documentation and assessment and plan per the resident note. ANT BACK MD Nov 10, 2022 18:58 RENE MATHUR MD Nov 11, 2022 10:17
--- NOTE | 2022-11-10 21:04 | Consultation-Cardiology ---
HPI-Cardiology Cardiology Consultation: Date of Consultation 11/10/22 Date of Admission Attending Physician Mandi Harris Aprn Admitting Physician Admitting Physician: Kimberlee Mathur MD Attending Physician: Kimberlee Mathur MD Consulting Physician Eula DENG MD HPI: Time Seen by a Provider: 21:34 Chief Complaint: Weakness This is an 82-year-old gentleman who has history of congestive heart failure, hypertension, diabetes. He also has history of DVT and is on chronic oral anticoagulation. He presents with bradycardia and feeling heavy in his arms and legs. Hyperglycemia is noted. Mild shortness of breath. No chest pain. Review of Systems-Cardiology Review of Systems Constitutional: tiredness Eyes: no symptoms reported Ears/Nose/Throat: no symptoms reported Respiratory: SOB with excertion Cardiovascular: no symptoms reported Gastrointestinal: no symptoms reported Genitourinary: no symptoms reported Musculoskeletal: other (Extremity discomfort) Skin: no symptoms reported Psychiatric/Neurological: no symptoms reported Hematologic: no symptoms reported All Other Systems Reviewed Negative Unless Noted: Yes [id number] Hx Patient Social History Smoking Status: Former Smoker Alcohol Use?: Yes Pt feels they are or have been: No Past Medical History PMH As described under Assessment. Allergies and Home Medications Allergies Coded Allergies: No Known Drug Allergies (Verified , 06/07/21) Patient Home Medication List Home Medication List Reviewed: Yes Acetaminophen (Tylenol) 500 Mg Tablet, 1,000 MG PO UD, (Reported) Entered as Reported by: CRIS ANTHONY on 02/15/07 2347 Aspirin (Aspirin) 81 Mg Tab.chew, 81 MG PO DAILY, (Reported) Entered as Reported by: KENIA TREVINO on 06/07/21 0840 Atorvastatin Calcium (Atorvastatin Calcium) 10 Mg Tablet, 10 MG PO HS, (Reported) Entered as Reported by: KENIA TREVINO on 03/08/22 1408 Cyanocobalamin (Vitamin B-12) (Vitamin B-12) 1,000 Mcg Tab.subl, 1,000 MCG SL UD, (Reported) Entered as Reported by: KENIA TREVINO on 06/07/21 0845 Fexofenadine HCl (Fexofenadine HCl) Unknown Strength Tablet, Unknown Dose PO, (Reported) Entered as Reported by: KENIA TREVINO on 06/07/21 0845 Fluticasone Propionate (Flonase) 16 Gm [place], (Reported) Entered as Reported by: CRIS ANTHONY on 02/15/07 2346 Fluticasone Propionate (Flonase Allergy Relief) 9.9 Ml [place].susp, 1 SPRAY NS DAILY, (Reported) Entered as Reported by: KENIA TREVINO on 06/07/21 08 Fluticasone/Salmeterol (Advair 250-50 Diskus) Unknown Strength Blst.w.dev, Unkno wn Dose IH DAILY, (Reported) Entered as Reported by: KENIA TREVINO on 06/07/21 08 Fluticasone/Umeclidin/Vilanter (Trelegy Ellipta 200-62.5-25) 200-62.5 Blst.w.dev, 1 EACH IH DAILY, (Reported) Entered as Reported by: KENIA TREVINO on 03/08/22 140 Furosemide (Furosemide) 20 Mg Tablet, 20 MG PO PRN, (Reported) Entered as Reported by: KENIA TREVINO on 06/07/21 08 Gabapentin (Neurontin) 300 Mg Capsule, 600 MG PO HS, (Reported) Entered as Reported by: KENIA TREVINO on 03/08/22 140 Hydrocodone/Acetaminophen (Hydrocodone-Acetamin 7.5-325) 7.5 Mg-325 Mg Tablet, 1 EACH PO UD, (Reported) Entered as Reported by: KENIA TREVINO on 03/08/22 140 Insulin Glargine,Hum.rec.anlog (Lantus) 100 Unit/1 Ml Vial, 40 UNIT SQ HS, (Reported) Entered as Reported by: KENIA TREVINO on 06/07/21 08 Lisinopril (Lisinopril) 40 Mg Tablet, 40 MG PO DAILY, (Reported) Entered as Reported by: KENIA TREVINO on 06/07/21 08 Loteprednol Etabonate (Loteprednol Etabonate) 5 Ml Drops.susp, 1 DROP OP UD, (Reported) Entered as Reported by: KENIA TREVINO on 06/07/21 0845 Metoprolol Tartrate (Metoprolol Tartrate) 50 Mg Tablet, 100 MG PO BID, (R eported) Entered as Reported by: KENIA TREVINO on 06/07/21844 Multivitamins (Vitamins (Multi-Vit)) 1 Ea Tablet, (Reported) Entered as Reported by: CRIS ANTHONY on 02/15/07 234 Nitroglycerin (Nitroglycerin) 0.4 Mg Tab.subl, 0.4 MG SL UD, (Reported) Entered as Reported by: KENIA TREVINO on 06/07/21844 [place] 3 Polyunsat Fatty Acids (Fish Oil 1,000 mg Capsule) 1,000 Mg Cap, 1,000 MG PO DAILY, (Reported) Entered as Reported by: KENIA TREVINO on 06/07/21839 Pantoprazole Sodium (Pantoprazole Sodium) 40 Mg Tablet.dr, 40 MG PO DAILY, (Reported) Entered as Reported by: KENIA TREVINO on 06/07/21839 Sitagliptin Phos/Metformin HCl (Janumet Xr 50-1,000 mg Tablet) 1 Each Tbmp.24hr, 1 EACH PO DAILY, (Reported) Entered as Reported by: KENIA TREVINO on 06/07/21839 Tamsulosin HCl (Flomax) 0.4 Mg Cap, 0.4 MG PO DAILY, (Reported) Entered as Reported by: KENIA TREVINO on 06/07/21839 [Vitamin D3] , UD, (Reported) Entered as Reported by: KENIA TREVINO on 06/07/21839 Exam Vital Signs Vital Signs Date Time Temp Pulse Resp B/P (MAP) Pulse Ox O2 Delivery O2 Flow Rate FiO2 11/10/22 20:21 60 11/10/22 19:32 20 157/84 95 Room Air 11/10/22 14:55 37.0 Physical Exam Constitutional: Complains of weakness. Chest: Clear to auscultation bilaterally. CVS: Sinus rhythm. No murmur. Abdomen: Soft Neuro: Alert, oriented Positive bilateral pitting pedal edema Labs Laboratory Tests Test 11/10/22 14:59 11/10/22 19:00 Range/Units White Blood Count 7.0 4.3-11.0 10^3/uL Red Blood Count 3.85 L 4.30-5.52 10^6/uL Hemoglobin 11.6 L 13.3-17.7 g/dL Hematocrit 35 L 40-54 % Mean Corpuscular Volume 92 80-99 fL Mean Corpuscular Hemoglobin 30 25-34 pg Mean Corpuscular Hemoglobin Concent 33 32-36 g/dL Red Cell Distribution Width 13.7 10.0-14.5 % Platelet Count 206 130-400 10^3/uL Mean Platelet Volume 11.2 9.0-12.2 fL Immature Granulocyte % (Auto) 1 % Neutrophils (%) (Auto) 65 42-75 % Lymphocytes (%) (Auto) 22 12-44 % Monocytes (%) (Auto) 8 0-12 % Eosinophils (%) (Auto) 4 0-10 % Basophils (%) (Auto) 0 0-10 % Neutrophils # (Auto) 4.5 1.8-7.8 X 10^3 Lymphocytes # (Auto) 1.6 1.0-4.0 X 10^3 Monocytes # (Auto) 0.6 0.0-1.0 X 10^3 Eosinophils # (Auto) 0.3 0.0-0.3 10^3/uL Basophils # (Auto) 0.0 0.0-0.1 10^3/uL Immature Granulocyte # (Auto) 0.0 0.0-0.1 10^3/uL Prothrombin Time 13.8 12.2-14.7 SEC INR Comment 1.0 0.8-1.4 Activated Partial Thromboplast Time 29 24-35 SEC Sodium Level 138 135-145 MMOL/L Potassium Level 5.1 H 3.6-5.0 MMOL/L Chloride Level 107 98-107 MMOL/L Carbon Dioxide Level 20 L 21-32 MMOL/L Anion Gap 11 5-14 MMOL/L Blood Urea Nitrogen 44 H 7-18 MG/DL Creatinine 2.08 H 0.60-1.30 MG/DL Estimat Glomerular Filtration Rate 32 BUN/Creatinine Ratio 21 Glucose Level 298 H 70-105 MG/DL Calcium Level 9.2 8.5-10.1 MG/DL Corrected Calcium 9.1 8.5-10.1 MG/DL Magnesium Level 1.8 1.6-2.4 MG/DL Total Bilirubin 0.3 0.1-1.0 MG/DL Aspartate Amino Transf (AST/SGOT) 16 5-34 U/L Alanine Aminotransferase (ALT/SGPT) 25 0-55 U/L Alkaline Phosphatase 72 40-136 U/L Myoglobin 112.7 H 10.0-92.0 NG/ML Troponin I < 0.028 < 0.028 <0.028 NG/ML B-Type Natriuretic Peptide 139.5 H <100.0 PG/ML Total Protein 6.7 6.4-8.2 GM/DL Albumin 4.1 3.2-4.5 GM/DL ECG Impression ECG Initial ECG Rhythm: S.Ulises A/P-Cardiology Assessment/Admission Diagnosis mild chest pain, Sinus bradycardia history of cad, Diabetes, hypertension, hyperlipidemia Plan - troponin serial. ekg, echo. Previous history of CAD and PCI. Initial myoglobin is positive.Patient may require coronary angiography versus nuclear stress test. - currently heart rate of 60s. hold beta blockers - Deferred treatment of diabetes, hypertension and hyperlipidemia to the primary service. Eula DENG MD Nov 10, 2022 21:04
[2022-11-10] MEDS ORDERED: PATIENT MAY USE OWN MEDS, ALL PO SCH (22:30)
[2022-11-10] MEDS ORDERED: NITROGLYCERIN 0.4 MG SL TABS BTL 25'S SL PRN ×2 (22:30→23:00)
[2022-11-10] MEDS ORDERED: PATIENT MAY USE OWN MEDS, ALL MC SCH (23:00)
[2022-11-10] MEDS ORDERED: inSUlin ASPART (NovoLOG) 1 UNIT/0.01 ML (CHARGE PER UNIT) ONE (23:12)
[2022-11-10] MEDS: inSUlin ASPART (NovoLOG) 1 UNIT/0.01 ML (CHARGE PER UNIT) SC SCH (23:14)
[2022-11-10 23:59] VITALS: BP 121/61
[2022-11-11 05:46] LABS: BASOPHILS % (AUTO) 1 % (0-10); EOSINOPHILS # (AUTO) 0.3 10^3/uL (0.0-0.3); EOSINOPHILS % (AUTO) 4 % (0-10); HEMATOCRIT 34 % (40-54); HEMOGLOBIN 11.2 g/dL (13.3-17.7); LYMPHOCYTES # (AUTO) 1.7 10^3/uL (1.0-4.0); LYMPHOCYTES % (AUTO) 27 % (12-44); MEAN CORPUSCULAR HEMOGLOBIN 30 pg (25-34); MEAN CORPUSCULAR HGB CONC 33 g/dL (32-36); MEAN CORPUSCULAR VOLUME 91 fL (80-99); MEAN PLATELET VOLUME 11.3 fL (9.0-12.2); MONOCYTES # (AUTO) 0.6 10^3/uL (0.0-1.0); MONOCYTES % (AUTO) 9 % (0-12); NEUTROPHILS # (AUTO) 3.6 10^3/uL (1.8-7.8); NEUTROPHILS % (AUTO) 58 % (42-75); PLATELET COUNT 163 10^3/uL (130-400); WHITE BLOOD COUNT 6.2 10^3/uL (4.3-11.0)
[2022-11-11 05:57] LABS: ALBUMIN 3.8 GM/DL (3.2-4.5); POTASSIUM 4.6 MMOL/L (3.6-5.0)
[2022-11-11 05:58] LABS: CALCIUM 9.2 MG/DL (8.5-10.1)
[2022-11-11 05:59] LABS: TOTAL PROTEIN 6.3 GM/DL (6.4-8.2)
[2022-11-11] MEDS ORDERED: inSUlin ASPART (NovoLOG) 1 UNIT/0.01 ML (CHARGE PER UNIT) SC SCH (06:00)
[2022-11-11 06:01] LABS: BILIRUBIN,TOTAL 0.3 MG/DL (0.1-1.0)
[2022-11-11 06:03] LABS: CREATININE SERUM 1.55 MG/DL (0.60-1.30)
[2022-11-11] MEDS: inSUlin ASPART (NovoLOG) 1 UNIT/0.01 ML (CHARGE PER UNIT) SC SCH ×2 (06:30→13:13)
[2022-11-11] MEDS ORDERED: METO50TA15 PO (07:06)
[2022-11-11] MEDS ORDERED: ROSU20TA73 PO (07:06)
[2022-11-11] MEDS ORDERED: POTA-185 PO (07:06)
[2022-11-11] MEDS ORDERED: MONT-40 PO (07:06)
[2022-11-11] MEDS ORDERED: FURO40TA4 PO ×2 (07:07→11:54)
[2022-11-11] MEDS ORDERED: APIX5TAB PO (07:08)
[2022-11-11] MEDS ORDERED: ALBU6.7H13 INH (07:11)
[2022-11-11] MEDS ORDERED: SITA1TBM7 PO (07:11)
[2022-11-11] MEDS ORDERED: GABA300C PO (07:11)
[2022-11-11] MEDS ORDERED: TADA5TAB13 PO (07:11)
[2022-11-11] MEDS ORDERED: RT-ALBUTEROL SULF 2.5 MG/3 ML PRE-MIX VIAL INH PRN (07:15)
[2022-11-11] MEDS ORDERED: HYDROcodone/APAP 7.5 MG/325 MG (LORTAB, LORCET PLUS) TABLET PO PRN (07:15)
[2022-11-11] MEDS ORDERED: TIOTROPIUM INH 4 GM (SPIRIVA Respimat) IH SCH (08:00)
[2022-11-11] MEDS ORDERED: FLUTICASONE/VILANTEROL 200 MCG 14'S (BREO) IH SCH (08:00)
[2022-11-11] MEDS ORDERED: ASPIRIN 81 MG CHEWABLE TABLET PO SCH (09:00)
[2022-11-11] MEDS ORDERED: ROSUVASTATIN 20 MG (CRESTOR) TABLET PO SCH (09:00)
[2022-11-11] MEDS ORDERED: APIXABAN 5 MG TABLET PO SCH ×2 (09:00)
[2022-11-11] MEDS ORDERED: INSU100V52 SQ (11:54)
[2022-11-11] MEDS ORDERED: CYAN500T8 PO (11:54)
[2022-11-11] MEDS ORDERED: MULT-1136 PO (11:54)
[2022-11-11] MEDS ORDERED: NITR0.4T39 SL (11:54)
[2022-11-11] MEDS ORDERED: ACET-2650 PO (11:54)
[2022-11-11] MEDS ORDERED: OMEG100032 PO (11:54)
[2022-11-11] MEDS ORDERED: CHOL10004 PO (11:54)
[2022-11-11] MEDS ORDERED: PROP10DR2 OU (11:54)
--- NOTE | 2022-11-11 13:45 | Discharge Summary ---
Discharge Summary Hospital Course Hospital Course Date of Admission: Nov 10, 2022 at 19:54 Admission Diagnosis : Symptomatic bradycardia Family Physician/Provider: Mandi Harris Aprn Date of Discharge: 11/11/22 Discharge Diagnosis: Bradycardia Hypertension Hyperlipidemia Coronary Artery disease History of VTE Hospital Course: Pt admitted and had initial myoglobin elevated but troponins neg. No chest pain, echo was normal. Seen by Cardiology and dione for d/c. Held beta guillermina. Labs and Pending Lab Test: Laboratory Tests 11/10/22 14:59: White Blood Count 7.0, Red Blood Count 3.85L, Hemoglobin 11.6L, Hematocrit 35L, Mean Corpuscular Volume 92, Mean Corpuscular Hemoglobin 30, Mean Corpuscular Hemoglobin Concent 33, Red Cell Distribution Width 13.7, Platelet Count 206, Mean Platelet Volume 11.2, Immature Granulocyte % (Auto) 1, Neutrophils (%) (Auto) 65, Lymphocytes (%) (Auto) 22, Monocytes (%) (Auto) 8, Eosinophils (%) (Auto) 4, Basophils (%) (Auto) 0, Neutrophils # (Auto) 4.5, Lymphocytes # (Auto) 1.6, Monocytes # (Auto) 0.6, Eosinophils # (Auto) 0.3, Basophils # (Auto) 0.0, Immature Granulocyte # (Auto) 0.0, Prothrombin Time 13.8, INR Comment 1.0, Activated Partial Thromboplast Time 29, Sodium Level 138, Potassium Level 5.1H, Chloride Level 107, Carbon Dioxide Level 20L, Anion Gap 11, Blood Urea Nitrogen 44H, Creatinine 2.08H, Estimat Glomerular Filtration Rate 32, BUN/Creatinine Ratio 21, Glucose Level 298H, Calcium Level 9.2, Corrected Calcium 9.1, Magnesium Level 1.8, Total Bilirubin 0.3, Aspartate Amino Transf (AST/SGOT) 16, Alanine Aminotransferase (ALT/SGPT) 25, Alkaline Phosphatase 72, Myoglobin 112.7H, Troponin I < 0.028, B-Type Natriuretic Peptide 139.5H, Total Protein 6.7, Albumin 4.1 11/10/22 19:00: Troponin I < 0.028 11/10/22 22:30: Glucometer 331H 11/11/22 05:16: White Blood Count 6.2, Red Blood Count 3.68L, Hemoglobin 11.2L, Hematocrit 34L, Mean Corpuscular Volume 91, Mean Corpuscular Hemoglobin 30, Mean Corpuscular Hemoglobin Concent 33, Red Cell Distribution Width 13.4, Platelet Count 163, Mean Platelet Volume 11.3, Immature Granulocyte % (Auto) 0, Neutrophils (%) (Auto) 58, Lymphocytes (%) (Auto) 27, Monocytes (%) (Auto) 9, Eosinophils (%) (Auto) 4, Basophils (%) (Auto) 1, Neutrophils # (Auto) 3.6, Lymphocytes # (Auto) 1.7, Monocytes # (Auto) 0.6, Eosinophils # (Auto) 0.3, Basophils # (Auto) 0.0, Immature Granulocyte # (Auto) 0.0, Sodium Level 139, Potassium Level 4.6, Chloride Level 109H, Carbon Dioxide Level 20L, Anion Gap 10, Blood Urea Nitrogen 36H, Creatinine 1.55H, Estimat Glomerular Filtration Rate 45, BUN/Creatinine Ratio 23, Glucose Level 247H, Calcium Level 9.2, Corrected Calcium 9.4, Total Bilirubin 0.3, Aspartate Amino Transf (AST/SGOT) 18, Alanine Aminotransferase (ALT/SGPT) 24, Alkaline Phosphatase 65, Total Protein 6.3L, Albumin 3.8, Triglycerides Level 128, Cholesterol Level 125, LDL Cholesterol Direct 60, VLDL Cholesterol 26, HDL Cholesterol 37L 11/11/22 10:45: Glucometer 258H Home Meds Active Reported Insulin Glargine (Insulin Glargine,Hum.rec.anlog) 100 Unit/Ml Vial 10 Unit SQ DAILY Systane Ultra 0.4-0.3% Eye Drp (Propylene Glycol/Peg 400) 0.3 %-0.4 % Drops 1-2 Drop OU UD PRN Tylenol Arthritis (Acetaminophen) 650 Mg Tablet.er 1,300 Mg PO Q8H PRN Multivitamin 1 Each Tablet 1 Each PO DAILY Vitamin B-12 (Cyanocobalamin (Vitamin B-12)) 500 Mcg Tablet 500 Mcg PO BID Vitamin D3 (Cholecalciferol (Vitamin D3)) 25 Mcg (1000 Unit) Tablet 25 Mcg PO DAILY Fish Oil 1,000 mg Softgel ([place]-3/Dha/Epa/Fish Oil) 1,000 Mg (120 Mg-180 Mg) Capsule 1,000 Mg PO BID Furosemide 40 Mg Tablet 40 Mg PO 1200 PRN Nitroglycerin 0.4 Mg Tab.subl 0.4 Mg SL UD PRN Tadalafil 5 Mg Tablet 5 Mg PO DAILY PRN Proventil Hfa (Albuterol Sulfate) 90 Mcg Hfa.aer.ad 2 Puff INH Q4H PRN Neurontin (Gabapentin) 300 Mg Capsule 300 Mg PO BID Janumet Xr 100-1,000 mg Tablet (Sitagliptin Phos/Metformin HCl) 100 Mg-1,000 Mg Tbmp.24hr 1 Tab PO HS Eliquis (Apixaban) 5 Mg Tablet 5 Mg PO BID Furosemide 40 Mg Tablet 40 Mg PO DAILY Montelukast Sodium 10 Mg Tablet 10 Mg PO DAILY K-Tab ER (Potassium Chloride) 10 Meq Tablet.er 10 Meq PO DAILY Rosuvastatin Calcium 20 Mg Tablet 20 Mg PO DAILY Trelegy Ellipta 200-62.5-25 (Fluticasone/Umeclidin/Vilanter) 200-62.5 Blst.w.dev 1 Puff IH DAILY Hydrocodone-Acetamin 7.5-325 (Hydrocodone/Acetaminophen) 7.5 Mg-325 Mg Tablet 1 Each PO TID PRN Loteprednol Etabonate 0.5 % Drops.susp 1 Drop OU BID Flonase Allergy Relief (Fluticasone Propionate) 50 Mcg/Actuation [place].susp 1 [place] NSEACH DAILY Lantus (Insulin Glargine,Hum.rec.anlog) 100 Unit/1 Ml Vial 40 Unit SQ HS Lisinopril 40 Mg Tablet 40 Mg PO DAILY Flomax (Tamsulosin HCl) 0.4 Mg Cap 0.4 Mg PO HS Aspirin 81 Mg Tab.chew 81 Mg PO DAILY Pantoprazole Sodium 40 Mg Tablet.dr 40 Mg PO DAILY Assessment/Pt DC Instructions Follow up with primary doctor within a week of discharge. Follow up with Cardiology as directed. Discharge Diet: Cardiac Diet Activity as Tolerated: Yes Discharge Physical Examination Allergies: Coded Allergies: No Known Drug Allergies (Verified , 06/07/21) Clinical Quality Measures AMI/AHF: ASA po Prior to arrival: RENE Lowe MD Nov 11, 2022 13:44
--- NOTE | 2022-11-11 15:13 | Cardiology Progress Note ---
Cardiology SOAP Progress Note Subjective: No cardiac complaints Objective: I&O/Vital Signs 11/11/22 11/11/22 11/11/22 11/11/22 04:00 07:00 08:00 08:15 Temp 36.0 35.9 Pulse 69 54 51 Resp 18 17 B/P (MAP) 162/62 (95) 155/71 (102) Pulse Ox 95 93 O2 Delivery Room Air Room Air 11/11/22 11/11/22 11/11/22 11/11/22 09:00 12:00 12:13 12:19 Temp 36.3 Pulse 54 55 Resp 21 B/P (MAP) 180/82 (124) Pulse Ox 96 98 O2 Delivery Room Air Room Air Constitutional: AAO x 3 Respiratory: lungs clear to auscultation Cardiovascular: regular rate-rhythm Gastrointestional: soft Neurologic/Psychiatric: no motor/sensory deficits, alert, normal mood/affect, oriented x 3 Skin: normal color Results/Procedures: Labs Laboratory Tests 11/10/22 19:00: Troponin I < 0.028 11/10/22 22:30: Glucometer 331H 11/11/22 05:16: White Blood Count 6.2, Red Blood Count 3.68L, Hemoglobin 11.2L, Hematocrit 34L, Mean Corpuscular Volume 91, Mean Corpuscular Hemoglobin 30, Mean Corpuscular Hemoglobin Concent 33, Red Cell Distribution Width 13.4, Platelet Count 163, Mean Platelet Volume 11.3, Immature Granulocyte % (Auto) 0, Neutrophils (%) (Auto) 58, Lymphocytes (%) (Auto) 27, Monocytes (%) (Auto) 9, Eosinophils (%) (Auto) 4, Basophils (%) (Auto) 1, Neutrophils # (Auto) 3.6, Lymphocytes # (Auto) 1.7, Monocytes # (Auto) 0.6, Eosinophils # (Auto) 0.3, Basophils # (Auto) 0.0, Immature Granulocyte # (Auto) 0.0, Sodium Level 139, Potassium Level 4.6, Chloride Level 109H, Carbon Dioxide Level 20L, Anion Gap 10, Blood Urea Nitrogen 36H, Creatinine 1.55H, Estimat Glomerular Filtration Rate 45, BUN/Creatinine Ratio 23, Glucose Level 247H, Calcium Level 9.2, Corrected Calcium 9.4, Total Bilirubin 0.3, Aspartate Amino Transf (AST/SGOT) 18, Alanine Aminotransferase (ALT/SGPT) 24, Alkaline Phosphatase 65, Total Protein 6.3L, Albumin 3.8, Trigl ycerides Level 128, Cholesterol Level 125, LDL Cholesterol Direct 60, VLDL Cholesterol 26, HDL Cholesterol 37L 11/11/22 10:45: Glucometer 258H A/P: Assessment/Dx: mild chest pain, Sinus bradycardia history of cad, Diabetes, hypertension, hyperlipidemia Plan: - echocardiogram showed normal LV function with no wall motion abnormalities. Previous history of CAD and PCI. Initial myoglobin is positive. Serial troponin are all negative. No chest discomfort. Okay to discharge and follow- up with Dr. Sal in the next 1 week - currently heart rate of 60s. hold beta blockers - Deferred treatment of diabetes, hypertension and hyperlipidemia to the primary service. Clinical Quality Measures AMI/AHF: ASA po Prior to arrival: Eula Alves MD Nov 11, 2022 15:13
== END 2022-11-11 15:50 | disposition home or self-care (01) ==
LOC: EDUNIT# 14:50 → ER 14:51 → NSY 19:54 → ICU 19:56
PROVIDERS: ADMIT Family Medicine; ATTEND Family Medicine
DX: R00.1 Bradycardia, unspecified (principal); E78.5 Hyperlipidemia, unspecified; R07.9 Chest pain, unspecified; I25.10 Atherosclerotic heart disease of native coronary artery without angina pectoris; I11.0 Hypertensive heart disease with heart failure; I50.9 Heart failure, unspecified; E11.65 Type 2 diabetes mellitus with hyperglycemia; Z86.718 Personal history of other venous thrombosis and embolism; Z79.01 Long term (current) use of anticoagulants; Z87.891 Personal history of nicotine dependence; Z79.4 Long term (current) use of insulin; Z79.84 Long term (current) use of oral hypoglycemic drugs
CPT/HCPCS: 36415; 71045; 80053; 80061; 82947; 83735; 83874; 83880; 84484; 85025; 85610; 85730; 93005; 93041; 93306; 96372